=== PATIENT | female | born 1985 | race Caucasian/White ===

== ENCOUNTER 2017-06-08 10:20 | Emergency (ER) | payer SELFPAY ==
[2017-06-08] MEDS ORDERED: Zofran 4 MG/2 ML VIAL IV ONE (10:46)
[2017-06-08] MEDS ORDERED: Hydromorphone 1 mg/ml Ampule IV ONE ×2 (10:46→11:32)
[2017-06-08] MEDS ORDERED: Sodium Chloride 0.9% 1000 ML 1,000 ML IV STA (10:46)
--- NOTE | 2017-06-08 10:50 | ERPHSYRPT ---
- History of Present Illness Time Seen by Provider: 06/08/17 10:32 Historian: patient Patient Subjective Stated Complaint: PT REPORTS RIGHT SIDED ABD PAIN BEGINNING LAST NIGHT-REPORTS [place] BUT DENIES VOMITING OR DIARRHEA-REPORTS HX OF GALLSTONES ET STATES IT FEELS LIKE THAT Triage Nursing Assessment: PT [place] T [id number] EASY ET NONLABORED-PT GUARDING RIGHT SIDE-DENIES DIFFICULTY WITH URINATION-ABD SOFT TENDER TO PALP Physician History: CC: abd pain Hx: 31 y/o patient with remote gallstone disease. She has been camping over the weekend. Has rather severe sharp RUQ abdominal pain radiating to her back for 2 days. No fever or chills. Severe nausea without vomiting. Recent normal LMP. No cough or dyspnea. Allergies/Adverse Reactions: No Known Drug Allergies Allergy (Unverified 06/08/17 10:39) Hx Tetanus, Diphtheria Vaccination/Date Given: No Hx Influenza Vaccination/Date Given: No Hx Pneumococcal Vaccination/Date Given: No Immunizations Up to Date: Yes - Review of Systems Constitutional: Malaise, No Fever, No Chills Eyes: No Symptoms Ears, Nose, & Throat: No Symptoms Respiratory: No Cough, No Dyspnea Cardiac: No Chest Pain Abdominal/Gastrointestinal: Abdominal Pain, Nausea, No Vomiting, No Diarrhea Genitourinary Symptoms: No Dysuria, No Hematuria, No Musculoskeletal: Back Pain Skin: No Rash Neurological: No Headache All Other Systems: Reviewed and Negative - Past Medical History Pertinent Past Medical History: No - Past Surgical History Past Surgical History: No - Social History Smoking Status: Current every day smoker How long have you smoked: YRS Exposure to second hand smoke: Yes Drug Use: none Patient Lives Alone: No - Female History Hx Last Menstrual Period: 2 DAYS AGO - Nursing Vital Signs Nursing Vital Signs: Initial Vital Signs Temperature 98.5 F 06/08/17 10:36 Pulse Rate 74 06/08/17 10:36 Respiratory Rate 20 06/08/17 10:36 Blood Pressure 144/94 06/08/17 10:36 O2 Sat by Pulse Oximetry 99 06/08/17 10:36 Pain Scale Pain Intensity 8 - Physical Exam General Appearance: alert Eye Exam: PERRL/EOMI, No scleral icterus Ears, Nose, Throat Exam: normal ENT inspection, moist mucous membranes Neck Exam: normal inspection, non-tender, supple Respiratory Exam: normal breath sounds Cardiovascular Exam: regular rate/rhythm Gastrointestinal/Abdomen Exam: soft, tenderness (RUQ with gambino sign), guarding , No distention, No mass Back Exam: No CVA tenderness Extremity Exam: normal inspection, normal range of motion Neurologic Exam: alert, oriented x 3, cooperative, sensation nml, No motor deficits Skin Exam: warm, dry, No rash SpO2 Interpretation: normal SpO2: 99 Oxygen Delivery: Room Air - Course Nursing assessment & vital signs reviewed: Yes - CT Exams abd/pelvis CT Interpretation: Tele-radiologist Report (cholelithiasis) Ordered Tests: Active Orders 24 hr Category Date Time Status Clean Catch Urine Specimen STAT Care 06/08/17 10:46 Active IV Insertion STAT Care 06/08/17 10:46 Active NPO (ED) STAT Care 06/08/17 10:46 Active ABDOMEN AND PELVIS W CONTRAST [CT] Stat Exams 06/08/17 10:47 Taken CBC W DIFF Stat Lab 06/08/17 10:53 Completed CMP Stat Lab 06/08/17 10:53 Completed HCG QUALITATIVE,SERUM Stat Lab 06/08/17 10:53 Completed LIPASE Stat Lab 06/08/17 10:53 Completed Lactic Acid Stat Lab 06/08/17 10:55 Completed UA W/RFX UR CULTURE Stat Lab 06/08/17 10:53 Completed Medication Summary Discontinued Medications Generic Name Dose Route Start Last Admin Trade Name Freq PRN Reason Stop Dose Admin Diphenhydramine HCl 25 mg 06/08/17 11:32 06/08/17 11:37 Benadryl 50 Mg/Ml IV 06/08/17 11:33 25 mg STAT ONE Administration Diphenhydramine HCl Confirm 06/08/17 11:35 Benadryl 50 Mg/Ml Administered 06/08/17 11:36 Dose 50 mg .ROUTE .STK-MED ONE Hydromorphone HCl 1 mg 06/08/17 10:46 06/08/17 10:54 Hydromorphone 1 Mg/Ml Ampule IV 06/08/17 10:47 1 mg STAT ONE Administration Hydromorphone HCl Confirm 06/08/17 10:51 Hydromorphone 1 Mg/Ml Ampule Administered 06/08/17 10:52 Dose 1 mg .ROUTE .STK-MED ONE Hydromorphone HCl 1 mg 06/08/17 11:32 06/08/17 11:38 Hydromorphone 1 Mg/Ml Ampule IV 06/08/17 11:33 1 mg STAT ONE Administration Hydromorphone HCl Confirm 06/08/17 11:35 Hydromorphone 1 Mg/Ml Ampule Administered 06/08/17 11:36 Dose 1 mg .ROUTE .STK-MED ONE Sodium Chloride 1,000 mls @ 999 mls/hr 06/08/17 10:46 06/08/17 10:52 Sodium Chloride 0.9% 1000 Ml IV 06/08/17 11:46 999 mls/hr .Q1H1M STA Administration Sodium Chloride Confirm 06/08/17 10:51 Sodium Chloride 0.9% 1000 Ml Administered 06/08/17 10:52 Dose 1,000 mls @ ud .ROUTE .STK-MED ONE Lactated Ringer's 1,000 mls @ 999 mls/hr 06/08/17 12:20 06/08/17 12:30 Lactated Ringers IV 06/08/17 13:20 999 mls/hr .Q1H1M ONE Administration Lactated Ringer's Confirm 06/08/17 12:27 Lactated Ringers Administered 06/08/17 12:28 Dose 1,000 mls @ ud IV .STK-MED ONE Ketorolac Tromethamine 30 mg 06/08/17 12:20 06/08/17 12:30 Toradol 30 Mg Injection IV 06/08/17 12:21 30 mg STAT ONE Administration Ketorolac Tromethamine Confirm 06/08/17 12:27 Toradol 30 Mg Injection Administered 06/08/17 12:28 Dose 30 mg .ROUTE .STK-MED ONE Ondansetron HCl 4 mg 06/08/17 10:46 06/08/17 10:54 Zofran 4 Mg/2 Ml Vial IV 06/08/17 10:47 4 mg STAT ONE Administration Ondansetron HCl Confirm 06/08/17 10:51 Zofran 4 Mg/2 Ml Vial Administered 06/08/17 10:52 Dose 4 mg .ROUTE .STK-MED ONE Lab/Rad Data: Laboratory Result Diagrams 06/08/17 10:53 06/08/17 10:53 Laboratory Results 06/08/17 06/08/17 06/08/17 Range/Units 10:55 10:53 10:53 WBC (4.0-10.5) K/mm3 RBC (4.1-5.4) M/mm3 Hgb (12.0-16.0) gm/dl Hct (35-47) % MCV (78-100) fl MCH (26-32) pg MCHC (32-36) g/dl RDW (11.5-14.0) % Plt Count (150-450) K/mm3 MPV (6-9.5) fl Gran % (36.0-66.0) % Lymphocytes % (24.0-44.0) % Monocytes % (0.0-12.0) % Eosinophils % (0.00-5.0) % Basophils % (0.0-0.4) % Basophils # (0-0.4) Sodium (136-145) mEq/L Potassium (3.5-5.1) mEq/L Chloride (98-107) mEq/L Carbon Dioxide (21-32) mEq/L Anion Gap (5-15) MEQ/L BUN (9-20) mg/dL Creatinine (0.55-1.30) mg/dl Estimated GFR ML/MIN Glucose (70-110) MG/DL Lactic Acid 1.1 (0.4-2.0) Calcium (8.5-10.1) mg/dL Total Bilirubin (0.2-1.0) mg/dL AST (15-37) U/L ALT (12-78) U/L Alkaline Phosphatase (46-116) U/L Serum Total Protein (6.4-8.2) gm/dL Albumin (3.4-5.0) g/dL Lipase (73-393) U/L Serum , Qual NEGATIVE (Negative) Ur Collection Type VOID Urine Color YELLOW (YELLOW) Urine Appearance CLEAR (CLEAR) Urine pH 8.0 (5-6) Ur Specific [place] 1.010 (1.005-1.025) Urine Protein NEGATIVE (Negative) Urine Ketones NEGATIVE (NEGATIVE) Urine Blood NEGATIVE (0-5) Jose Alberto/ul Urine Nitrite NEGATIVE (NEGATIVE) Urine Bilirubin NEGATIVE (NEGATIVE) Urine Urobilinogen NORMAL (0-1) mg/dL Ur Leukocyte Esterase NEGATIVE (NEGATIVE) Urine Glucose NEGATIVE (NEGATIVE) mg/dL Specimen Received 06/08/17 1030 06/08/17 06/08/17 Range/Units 10:53 10:53 WBC 6.5 (4.0-10.5) K/mm3 RBC 4.96 (4.1-5.4) M/mm3 Hgb 14.1 (12.0-16.0) gm/dl Hct 43.7 (35-47) % MCV 88.1 (78-100) fl MCH 28.4 (26-32) pg MCHC 32.3 (32-36) g/dl RDW 13.5 (11.5-14.0) % Plt Count 258 (150-450) K/mm3 MPV 10.3 H (6-9.5) fl Gran % 57.0 (36.0-66.0) % Lymphocytes % 32.0 (24.0-44.0) % Monocytes % 6.8 (0.0-12.0) % Eosinophils % 3.9 (0.00-5.0) % Basophils % 0.3 (0.0-0.4) % Basophils # 0.02 (0-0.4) Sodium 140 (136-145) mEq/L Potassium 3.9 (3.5-5.1) mEq/L Chloride 105 (98-107) mEq/L Carbon Dioxide 25.7 (21-32) mEq/L Anion Gap 12.8 (5-15) MEQ/L BUN 12 (9-20) mg/dL Creatinine 0.86 (0.55-1.30) mg/dl Estimated GFR > 60 ML/MIN Glucose 97 (70-110) MG/DL Lactic Acid (0.4-2.0) Calcium 8.9 (8.5-10.1) mg/dL Total Bilirubin 0.10 L (0.2-1.0) mg/dL AST 9 L (15-37) U/L ALT 28 (12-78) U/L Alkaline Phosphatase 83 (46-116) U/L Serum Total Protein 7.5 (6.4-8.2) gm/dL Albumin 3.6 (3.4-5.0) g/dL Lipase 167 (73-393) U/L Serum , Qual (Negative) Ur Collection Type Urine Color (YELLOW) Urine Appearance (CLEAR) Urine pH (5-6) Ur Specific [place] (1.005-1.025) Urine Protein (Negative) Urine Ketones (NEGATIVE) Urine Blood (0-5) Jose Alberto/ul Urine Nitrite (NEGATIVE) Urine Bilirubin (NEGATIVE) Urine Urobilinogen (0-1) mg/dL Ur Leukocyte Esterase (NEGATIVE) Urine Glucose (NEGATIVE) mg/dL Specimen Received - Progress Progress Note: 06/08/17 13:29 She has symptomatic gallstones without sign of cholecystitis. Advised surgicalfollow up as well as prilosec for possible duodenitis. Abd soft. Will release with instr. Counseled pt/family regarding: lab results, diagnosis, need for follow-up, rad results - Departure Time of Disposition: 13:30 Departure Disposition: Home Clinical Impression: Biliary colic, Cholelithiasis, Duodenitis Condition: Stable Critical Care Time: No Referrals: DOCTOR,NO FAMILY [Primary Care Provider] - NILA AMBROSE [ACTIVE STAFF] - Instructions: Abdominal Pain-Adult, Gallstones, Peptic Ulcer Additional Instructions: Rx prilosec. Rx norco. Drake diet with no fatty, greasy, spicy foods. Return for problems or concerns. Call for follow up this week. ABDOMINAL PAIN 1. There are several different causes for abdominal pain, some of which may not be able to be identified on initial examination. 2. The important thing to remember is that bodily functions can change in a short period of time. If you notice any of the following symptoms, return to the emergency department or consult your doctor immediately: A. Worsening pain or no improvement in the next 12 hours. B. Increasing, severe abdominal pain C. Blood in stool D. Black stools E. Persistent vomiting F. Fever or chills or other symptoms Prescriptions: Hydrocodone/APAP 5/325 [[place] 5/325 mg] 1 each PO Q4-6HPRN PRN #10 tablet PRN Reason: Pain Omeprazole 20 MG [Prilosec 20 mg] 20 mg PO DAILY #30 capsule.
[2017-06-08] MEDS ORDERED: Zofran 4 MG/2 ML VIAL ONE (10:51)
[2017-06-08] MEDS ORDERED: Hydromorphone 1 mg/ml Ampule ONE ×2 (10:51→11:35)
[2017-06-08] MEDS ORDERED: Sodium Chloride 0.9% 1000 ML 1,000 ML ONE (10:51)
[2017-06-08 10:59] LABS: BASOPHIL % 0.3 % (0.0-0.4); Eosinophil % 3.9 % (0.00-5.0); Mean Cell Volume 88.1 fl (78-100); Mean Corpuscular Hemoglobin 28.4 pg (26-32); Mean Platelet Volume 10.3 fl (6-9.5); Monocytes % 6.8 % (0.0-12.0); Platelet Count 258 K/mm3 (150-450); Red Blood Count 4.96 M/mm3 (4.1-5.4); Red Cell Distribution Width 13.5 % (11.5-14.0); White Blood Count 6.5 K/mm3 (4.0-10.5)
[2017-06-08 11:00] LABS: Collection Type VOID
[2017-06-08 11:01] LABS: ADD URINE CULTURE? NO (NO); Bilirubin NEGATIVE (NEGATIVE); Blood NEGATIVE Ery/ul (0-5); COMPLETE URINE MICROSCOPIC? NO; Glucose NEGATIVE (NEGATIVE); Leukocyte Esterase NEGATIVE (NEGATIVE)
[2017-06-08 11:19] LABS: ALBUMIN 3.6 g/dL (3.4-5.0); ALKALINE PHOSPHATASE 83 U/L (46-116); ANION GAP 12.8 MEQ/L (5-15); BLOOD UREA NITROGEN 12 mg/dL (9-20); CHLORIDE 105 mEq/L (98-107); Carbon Dioxide 25.7 mEq/L (21-32); Glucose 97 MG/DL (70-110); LIPASE 167 U/L (73-393); Potassium 3.9 mEq/L (3.5-5.1); SGOT/AST 9 U/L (15-37); SGPT/ALT 28 U/L (12-78); SODIUM 140 mEq/L (136-145); Total Protein 7.5 gm/dL (6.4-8.2)
[2017-06-08] MEDS ORDERED: BENADRYL 50 MG/ML IV ONE (11:32)
[2017-06-08] MEDS ORDERED: BENADRYL 50 MG/ML ONE (11:35)
[2017-06-08 12:19] VITALS: PULSE 53
[2017-06-08] MEDS ORDERED: TORAdol 30 mg Injection IV ONE (12:20)
[2017-06-08] MEDS ORDERED: Lactated Ringers 1,000 ML IV ONE ×2 (12:20→12:27)
[2017-06-08] MEDS ORDERED: TORAdol 30 mg Injection ONE (12:27)
[2017-06-08 13:26] VITALS: BP 107/67
[2017-06-08 13:32] VITALS: O2SAT 99
--- NOTE | 2017-06-08 21:06 | XRAY ---
Indication: Right upper quadrant abdominal pain. Multiple contiguous axial images obtained through the abdomen and pelvis using 80 cc Isovue 370 contrast only. Comparison: None Lung bases essentially clear. Heart is not enlarged. Noncontrasted stomach and bowel loops appear nonobstructed. Normal appendix. No free fluid/air. 1.7 cm gallstone without features for cholecystitis or biliary distention. The liver is fatty and enlarged measuring 24 cm. Spleen is also enlarged measuring 15 cm. 2 cm right ovary cyst. Remaining liver, pancreas, spleen, adrenal glands, kidneys, ureters, bladder, uterus, and aorta appear unremarkable. No pathologic retroperitoneal lymphadenopathy. 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 Impression: 1. Fatty hepatomegaly and splenomegaly. 2. Cholelithiasis without cholecystitis. Gallbladder sonogram may yield further information if there remains further clinical concern. 3. 2 cm right ovary cyst. 4. No acute intra-abdominal/pelvic abnormalities. Comment: Preliminary interpretation was made by [facility]. No critical discrepancy. CTDI 23.41
== END 2017-06-08 13:52 ==
LOC: ED 10:20
DX: K80.50 Calculus of bile duct without cholangitis or cholecystitis without obstruction (principal); K80.20 Calculus of gallbladder without cholecystitis without obstruction; K29.80 Duodenitis without bleeding; R10.11 Right upper quadrant pain; R11.0 Nausea
CPT/HCPCS: 36000; 36415; 74177; 80053; 81002; 83605; 83690; 84703; 85025; 96360; 96361; 96374; 96375; 99284; J1170; J1200; J1885; J2405